=== PATIENT | female | born 1990 | race Caucasian/White ===

== ENCOUNTER 2021-01-18 03:20 | Emergency (ER) | payer OTHER ==
[2021-01-18 03:28] VITALS: O2SAT 98
[2021-01-18] MEDS ORDERED: KEFLEX 500 MG PO ONE (03:53)
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
[2021-01-18] MEDS ORDERED: KEFLEX 500 MG ONE (04:03)
[2021-01-18 04:26] VITALS: BP 120/68; PULSE 68
== END 2021-01-18 04:15 | disposition home or self-care (01) ==
LOC: ED 03:20
DX: J32.9 Chronic sinusitis, unspecified (principal)
CPT/HCPCS: 99283; A9270-GY